=== PATIENT | female | born 1955 | race Caucasian/White ===

== ENCOUNTER → 2017-03-03 | Outpatient (CLI) | payer OTHER ==
[~2017-03-03] MED LIST: ESCI1TAB10 PO; HYDR12.55 PO; LISI-725 PO; METO-217 PO; MIRAPEX 0.5 MG PO
[2017-03-03 14:40] LABS: HEMATOCRIT 45.7 % (37-47); HEMOGLOBIN 15.3 g/dL (12.0-16.0); MEAN CELL VOLUME 88.4 fL (80-100); MEAN CORPUSCULAR HEMOGLOBIN 29.6 pg (25-34); MEAN CORPUSCULAR HGB CONC 33.5 g/dl (32-36); MEAN PLATELET VOLUME 11.3 fL (7.4-10.4); PLATELET COUNT 320 K/uL (130-400); RED CELL DISTRIBUTION WIDTH CV 14.1 % (11.5-14.5); WHITE BLOOD COUNT 9.99 K/uL (4.8-10.8)
== END | disposition home or self-care (01) ==
LOC: C.LAB1850 12:51
PROVIDERS: ATTEND Physician Assistant
DX: G25.81 Restless legs syndrome (principal)

== ENCOUNTER 2017-06-24 20:48 | Emergency (ER) | payer OTHER ==
[~2017-06-24] VITALS: Ht 170.2 cm; Wt 104.2 kg
[2017-06-24 21:17] VITALS: TEMP 36.9; Ht 170.2 cm; Wt 104.2 kg
[2017-06-24 21:58] LABS: BASO % 0.2 %; BASO ABS # 0.02 K/uL (0-0.2); EOS % 2.7 %; EOS ABS # 0.29 K/uL (0-0.5); HEMATOCRIT 40.7 % (37-47); HEMOGLOBIN 13.7 g/dL (12.0-16.0); IG# 0.02 K/uL (0.00-0.02); LYMPH % 24.7 %; LYMPH ABS # 2.66 K/uL (1.2-3.4); MEAN CELL VOLUME 85.5 fL (80-100); MEAN CORPUSCULAR HEMOGLOBIN 28.8 pg (25-34); MEAN CORPUSCULAR HGB CONC 33.7 g/dl (32-36); MEAN PLATELET VOLUME 10.3 fL (7.4-10.4); MONO % 6.9 %; MONO ABS # 0.74 K/uL (0.11-0.59); NEUT % 65.3 %; NEUT ABS # 7.05 K/uL (1.4-6.5); PLATELET COUNT 289 K/uL (130-400); RED CELL DISTRIBUTION WIDTH CV 14.6 % (11.5-14.5); RED CELL DISTRIBUTION WIDTH SD 45.7 fL (36.4-46.3); WHITE BLOOD COUNT 10.78 K/uL (4.8-10.8)
--- NOTE | 2017-06-24 22:13 | DIAGNOSTIC IMAGING REPORT ---
R VENOUS DOPP LOWER EXT UNILAT CLINICAL HISTORY: 61 years-old Female presenting with right leg swelling. TECHNIQUE: Real-time grayscale and color and spectral Doppler ultrasound imaging of the veins of the right lower extremity was performed. Compression and augmentation were also utilized. COMPARISON: None. FINDINGS: Right: Common femoral vein: Patent. Greater saphenous vein: Patent. Deep femoral vein: Patent. Femoral vein: Patent. Popliteal vein: Patent. Calf veins: Limited visualization. Other: Lobular anechoic lesion in the right popliteal fossa. This with a popliteal cyst. IMPRESSION: No evidence of deep venous thrombosis. Electronically signed by: Zaheer Vail M.D. 06/24/2017 10:11 PM Dictated Date/Time: 06/24/2017 10:10 PM
[2017-06-24 22:24] LABS: CREATININE 0.68 mg/dl (0.60-1.20)
--- NOTE | 2017-06-24 22:24 | DIAGNOSTIC IMAGING REPORT ---
R KNEE 3 VIEWS CLINICAL HISTORY: 61 years-old Female presenting with right knee swelling. TECHNIQUE: Frontal, lateral, and sunrise views of the right knee were obtained. COMPARISON: None. FINDINGS: Joint space is preserved with tricompartmental osteophytosis. Slight lateral subluxation of the patella. No acute fracture or malalignment. Chondrocalcinosis noted. IMPRESSION: 1. Tricompartmental degenerative change. 2. Possible joint effusion. 3. No acute osseous injury. Electronically signed by: Zaheer Vail M.D. 06/24/2017 10:22 PM Dictated Date/Time: 06/24/2017 10:20 PM
[2017-06-24 22:47] VITALS: BP 138/62; PULSE 64; O2SAT 98
--- NOTE | 2017-06-25 05:23 | EMERGENCY ROOM VISIT NOTE ---
History First contact with patient: 21:23 Chief Complaint: LEG PAIN,LEG INJURY Stated Complaint: PAINFUL EDAMATOUS RIGHT LEG History of Present Illness The patient is a 61 year old female who presents to the Emergency Room with complaints of right knee pain and swelling for the past few days. Patient was at urgent care and sent to the ER for further evaluation and treatment. Patient does smoke. No recent travel. No history of blood clots. Patient denies chest pain, dyspnea, trauma to the knee, tick bites, fever, chills, redness to the leg. Patient states occasionally her joints do swell. Review of Systems An 10 system review of systems was completed with positives and pertinent negatives listed in the HPI. Past Medical/Surgical History SVT, hypertension Social History Smoking Status: Current Every Day Smoker Smokeless Tobacco Use: No Alcohol Use: none Drug Use: none Occupation Status: employed Current/Historical Medications Scheduled Escitalopram Oxalate (Lexapro), 20 MG PO DAILY Hydrochlorothiazide (Hydrochlorothiazide), 1 TAB PO DAILY Lisinopril (Zestril), 20 MG PO DAILY Metoprolol Succinate (Toprol Xl), 100 MG PO DAILY [mirapex .5mg], 1 TABLET PO TID PRN Physical Exam Vital Signs Date Time Temp Pulse Resp B/P (MAP) Pulse Ox O2 Delivery O2 Flow Rate FiO2 06/24/17 22:47 64 14 138/62 98 Room Air 06/24/17 21:17 36.9 87 18 182/110 95 Room Air Physical Exam VITALS: Vitals are noted on the nurse's note and reviewed by myself. Vital signs stable. GENERAL: Pleasant female, in no acute distress, nondiaphoretic, well-developed well-nourished. SKIN: Capillary reflex less than 2 seconds. HEENT: Normocephalic. PERRLA. EOMI. Nares patent. Mucous membranes moist. Neck is supple without nuchal rigidity. HEART: Regular rate and rhythm LUNGS: Clear to auscultation bilaterally without wheezes, rales or rhonchi. No retractions or accessory muscle use. ABDOMEN: Positive bowel sounds x 4. Normal tympanic percussion. Soft, nontender, without masses or organomegaly. Snyder sign negative. No guarding or rebound tenderness. MUSCULOSKELETAL: No gross musculoskeletal defects. No pedal edema. No calf tenderness. The right knee is swollen. There is joint effusion present. There are no previous scars to the knee. There is no joint line tenderness. The patella not subluxate. Range of motion is not limited by tenderness. Strength of the quads and hamstrings is 5/5. Byron's is neg. Ruthie's and Anterior Drawer tests are neg. NEURO: Patient was alert and oriented to person place and time. Normal sensation to light and sharp touch. No focal neurological deficits. Medical Decision & Procedures Laboratory Results 06/24/17 21:44 Red Blood Count 4.76, Mean Corpuscular Volume 85.5, Mean Corpuscular Hemoglobin 28.8, Mean Corpuscular Hemoglobin Concent 33.7, Mean Platelet Volume 10.3, Neutrophils (%) (Auto) 65.3, Lymphocytes (%) (Auto) 24.7, Monocytes (%) (Auto) 6.9, Eosinophils (%) (Auto) 2.7, Basophils (%) (Auto) 0.2, Neutrophils # (Auto) 7.05, Lymphocytes # (Auto) 2.66, Monocytes # (Auto) 0.74, Eosinophils # (Auto) 0.29, Basophils # (Auto) 0.02 06/24/17 21:44 Test 06/24/17 21:44 White Blood Count 10.78 K/uL (4.8-10.8) Red Blood Count 4.76 M/uL (4.2-5.4) Hemoglobin 13.7 g/dL (12.0-16.0) Hematocrit 40.7 % (37-47) Mean Corpuscular Volume 85.5 fL (80-100) Mean Corpuscular Hemoglobin 28.8 pg (25-34) Mean Corpuscular Hemoglobin Concent 33.7 g/dl (32-36) Platelet Count 289 K/uL (130-400) Mean Platelet Volume 10.3 fL (7.4-10.4) Neutrophils (%) (Auto) 65.3 % Lymphocytes (%) (Auto) 24.7 % Monocytes (%) (Auto) 6.9 % Eosinophils (%) (Auto) 2.7 % Basophils (%) (Auto) 0.2 % Neutrophils # (Auto) 7.05 K/uL (1.4-6.5) Lymphocytes # (Auto) 2.66 K/uL (1.2-3.4) Monocytes # (Auto) 0.74 K/uL (0.11-0.59) Eosinophils # (Auto) 0.29 K/uL (0-0.5) Basophils # (Auto) 0.02 K/uL (0-0.2) RDW Standard Deviation 45.7 fL (36.4-46.3) RDW Coefficient of Variation 14.6 % (11.5-14.5) Immature Granulocyte % (Auto) 0.2 % Immature Granulocyte # (Auto) 0.02 K/uL (0.00-0.02) Erythrocyte Sedimentation Rate 13 mm/hr (0-21) Anion Gap 4.0 mmol/L (3-11) Est Creatinine Clear Calc Drug Dose 105.1 ml/min Estimated GFR () 107.9 Estimated GFR (Non- 93.1 BUN/Creatinine Ratio 41.6 (10-20) Calcium Level 9.0 mg/dl (8.5-10.1) C-Reactive Protein 0.69 mg/dl (0-0.29) Lyme Disease IgG Antibody NEG (NEG) Lyme Disease IgM Antibody NEG (NEG) ED Course Prior records reviewed and summarized above. Triage Nursing notes reviewed. The patient's history was concerning for swelling and pain in the leg. Differential diagnosis: Etiologies such as DVT, musculoskeletal, infection, joint effusion, trauma, lymphedema, idiopathic, CHF, as well as others were entertained.. Physical examination: The physical examination revealed no signs of infection. Neurovascularly intact. ER treatment provided: mikhail wrap and neurovascular status was rechecked after placement and is intact, pt has crutches On reassessment the patient felt better. Diagnostics interpreted by me: The labs revealed negative Lyme's. No worrisome leukocytosis Imaging studies: R KNEE 3 VIEWS CLINICAL HISTORY: 61 years-old Female presenting with right knee swelling. TECHNIQUE: Frontal, lateral, and sunrise views of the right knee were obtained. COMPARISON: None. FINDINGS: Joint space is preserved with tricompartmental osteophytosis. Slight lateral subluxation of the patella. No acute fracture or malalignment. Chondrocalcinosis noted. IMPRESSION: 1. Tricompartmental degenerative change. 2. Possible joint effusion. 3. No acute osseous injury. Electronically signed by: Zaheer Vail M.D. R VENOUS DOPP LOWER EXT UNILAT CLINICAL HISTORY: 61 years-old Female presenting with right leg swelling. TECHNIQUE: Real-time grayscale and color and spectral Doppler ultrasound imaging of the veins of the right lower extremity was performed. Compression and augmentation were also utilized. COMPARISON: None. FINDINGS: Right: Common femoral vein: Patent. Greater saphenous vein: Patent. Deep femoral vein: Patent. Femoral vein: Patent. Popliteal vein: Patent. Calf veins: Limited visualization. Other: Lobular anechoic lesion in the right popliteal fossa. This with a popliteal cyst. IMPRESSION: No evidence of deep venous thrombosis. Electronically signed by: Zaheer Vail M.D. This appears to be consistent with right knee effusion. Patient was neurovascularly and neurologically intact. She had no signs of a septic joint. No DVT. No fracture. Neg Lymes test. Patient was advised to wear the knee Mikhail wrap for compression and use her crutches. She is advised to follow-up orthopedics in a few days or here in the ER sooner for severe pain, numbness, tingling, worsening signs or symptoms or as needed. By the evaluation outlined above emergent etiologies such as DVT, septic joint, trauma, infection, CHF, as well as others were deemed relatively unlikely. The pt informed about the findings as listed above. All questions were answered and pleased with the treatment. Return instructions were outlined and the patient was discharged in stable condition. Referral: The patient was referred back to their primary care physician for follow-up in 2 to 3 days for a recheck of the current condition. The chart was completed utilizing [employer] Speech voice recognition software. Grammatical errors, random word insertions, pronoun errors, and incomplete sentences are an occassional consequence of this system due to software limitations, ambient noise, and hardware issues. Any formal questions or concerns about the content, text, or information contained within the body of this dictation should be directly addressed to the physician night assistant for clarification. Medical Decision as above Medication Reconcilliation Current Medication List: was personally reviewed by me Blood Pressure Screening Patient's blood pressure: Normal blood pressure Impression Primary Impression: Knee effusion, right Departure Information Dispostion Home / Self-Care Condition GOOD Referrals Jordy Garces, D.O. Forms HOME CARE DOCUMENTATION FORM, IMPORTANT VISIT INFORMATION Patient Instructions [facility], ED Effusion Knee Additional Instructions Ibuprofen(Motrin, Advil) may be used for fever or pain. Use 600mg every six hours as needed. Take with food. Avoid using more than 2400mg in a 24 hour period. Do not use 2400mg per day for more than three consecutive days without physician direction. Prolonged inappropriate use can lead to stomach upset or ulcers. This medication can be taken if you need to drive, work, or perform activities which may be dangerous when taking narcotic pain medication. (AND/OR) Acetaminophen(Tylenol) may be used for fever or pain. Use 1000mg every six hours as needed. Avoid using more than 3000mg in a 24 hour period. This medication can be taken if you need to drive, work, or perform activities which may be dangerous when taking narcotic pain medication. Ice compresses for 20 minutes at a time four times daily for 2-3 days. Use the crutches as instructed. Rest and elevate your injury. Wear knee Mikhail wrap until pain/swelling subsides. Do not have it so tight that you cannot feel your foot. Continue current medications. Return to the ER immediately for any numbness, tingling, severe pain, extreme swelling in the extremity or as needed. Call Orthopedics tomorrow to arrange follow up.
== END 2017-06-24 23:00 | disposition home or self-care (01) ==
LOC: C.EDB 20:50 → C.EDD 23:00
DX: M25.461 Effusion, right knee (principal); I47.1 Supraventricular tachycardia; I10 Essential (primary) hypertension; F17.200 Nicotine dependence, unspecified, uncomplicated

== ENCOUNTER 2017-11-10 21:47 | Emergency (ER) | payer SELFPAY ==
[2017-11-10 21:55] VITALS: TEMP 37.3; Ht 170.2 cm
[2017-11-10 22:46] LABS: BASO % 0.4 %; BASO ABS # 0.05 K/uL (0-0.2); EOS % 1.9 %; EOS ABS # 0.26 K/uL (0-0.5); HEMATOCRIT 39.7 % (37-47); HEMOGLOBIN 13.2 g/dL (12.0-16.0); IG# 0.05 K/uL (0.00-0.02); LYMPH % 14.5 %; MEAN CELL VOLUME 84.3 fL (80-100); MEAN CORPUSCULAR HGB CONC 33.2 g/dl (32-36); MEAN PLATELET VOLUME 10.4 fL (7.4-10.4); MONO % 8.9 %; MONO ABS # 1.23 K/uL (0.11-0.59); NEUT % 73.9 %; NEUT ABS # 10.25 K/uL (1.4-6.5); PLATELET COUNT 359 K/uL (130-400); RED CELL DISTRIBUTION WIDTH CV 14.7 % (11.5-14.5); WHITE BLOOD COUNT 13.84 K/uL (4.8-10.8)
[2017-11-10] MEDS ORDERED: CEFTRIAXONE SOD INJ 1 GM ADDVIAL IV STA (22:58)
[2017-11-10] MEDS ORDERED: POTASSIUM CHLORIDE 10 MEQ TABCR PO STA (22:58)
[2017-11-10 23:05] LABS: ALKALINE PHOSPHATASE 213 U/L (45-117); ALT/SGPT 114 U/L (12-78); AST/SGOT 87 U/L (15-37); BLOOD UREA NITROGEN 28 mg/dl (7-18); CALCIUM 9.1 mg/dl (8.5-10.1); CARBON DIOXIDE 28 mmol/L (21-32); GLUCOSE 169 mg/dl (70-99); SODIUM 140 mmol/L (136-145); TOTAL PROTEIN 6.9 gm/dl (6.4-8.2)
[2017-11-10] MEDS ORDERED: POTA10CA28 PO (23:52)
[2017-11-10] MEDS ORDERED: CEPH500C PO (23:52)
--- NOTE | 2017-11-10 23:54 | EMERGENCY ROOM VISIT NOTE ---
History Report prepared by Ming: Stanley Melendez Under the Supervision of: Becka AlvarengaO. First contact with patient: 22:53 Chief Complaint: ABNORMAL LABS Stated Complaint: ILLNESS, ABNORMAL LAB History of Present Illness The patient is a 62 year old female who presents to the Emergency Room with complaints of a potassium level of 2.9 from blood work done 2 days ago. The patient reports that she also has pain and swelling in her legs and is unable to walk, beginning 2 days ago. She states that she had diarrhea for 7 days starting October 27, reporting a low potassium level at that time. She denies any urinary symptoms. Source of History: patient Onset: labs from 2 days ago Position: other (global) Symptom Intensity: 2.9 potassium level Quality: other (abnormal potassium level) Associated Symptoms: No urinary symptoms Note: swelling and pain in legs, difficulty walking Review of Systems See HPI for pertinent positives & negatives. A total of 10 systems reviewed and were otherwise negative. Past Medical & Surgical Medical Problems: (1) Bronchitis (2) Restless leg syndrome Surgical Problems: (1) History of tubal ligation Family History Cancer Diabetes mellitus Heart disease Hypertension Social History Smoking Status: Current Every Day Smoker Alcohol Use: none Drug Use: none Occupation Status: employed Current/Historical Medications Scheduled Cephalexin Monohydrate (Keflex), 500 MG PO QID Hydrochlorothiazide (Hydrochlorothiazide), 1 TAB PO DAILY Lisinopril (Zestril), 20 MG PO DAILY Metoprolol Succinate (Toprol Xl), 100 MG PO DAILY Potassium Chloride (Micro-K Ext Rel), 10 MEQ PO BID Pramipexole Dihydrochloride (Mirapex), 0.5 MG PO TID Allergies Coded Allergies: Erythromycin (Unverified Allergy, Intermediate, FEELS VERY SICK, 06/24/17) Azithromycin (Verified Adverse Reaction, Unknown, "severe epigastric pain ", 06/24/17) Physical Exam Vital Signs Date Time Temp Pulse Resp B/P (MAP) Pulse Ox O2 Delivery O2 Flow Rate FiO2 11/10/17 23:19 65 18 123/54 97 Room Air 11/10/17 21:55 37.3 67 18 140/61 96 Room Air Physical Exam CONSTITUTIONAL/VITAL SIGNS: Reviewed / noted above. GENERAL: Non-toxic in appearance. INTEGUMENTARY: Warm, dry, and [place]. HEAD: Normocephalic. EYES: without scleral icterus or trauma. ENT/OROPHARYNX: clear and moist. LYMPHADENOPATHY/NECK: Is supple without lymphadenopathy or meningismus. RESPIRATORY: Lungs clear and equal. CARDIOVASCULAR: Regular rate and rhythm. GI/ABDOMEN: Soft and nontender. No organomegaly or pulsatile mass. No rebound or guarding. Normal bowel sounds. EXTREMITIES: Well perfused. Erythema and increased warmth to the right anterior leg. BACK: No CVA tenderness. NEUROLOGICAL: Intact without focal deficits. PSYCHIATRIC: normal affect. MUSCULOSKELETAL: Normally developed with good muscle tone. Medical Decision & Procedures Laboratory Results 11/10/17 22:25 Red Blood Count 4.71, Mean Corpuscular Volume 84.3, Mean Corpuscular Hemoglobin 28.0, Mean Corpuscular Hemoglobin Concent 33.2, Mean Platelet Volume 10.4, Neutrophils (%) (Auto) 73.9, Lymphocytes (%) (Auto) 14.5, Monocytes (%) (Auto) 8.9, Eosinophils (%) (Auto) 1.9, Basophils (%) (Auto) 0.4, Neutrophils # (Auto) 10.25, Lymphocytes # (Auto) 2.00, Monocytes # (Auto) 1.23, Eosinophils # (Auto) 0.26, Basophils # (Auto) 0.05 11/10/17 22:25 Test 11/10/17 22:25 11/10/17 23:05 White Blood Count 13.84 K/uL (4.8-10.8) Red Blood Count 4.71 M/uL (4.2-5.4) Hemoglobin 13.2 g/dL (12.0-16.0) Hematocrit 39.7 % (37-47) Mean Corpuscular Volume 84.3 fL (80-100) Mean Corpuscular Hemoglobin 28.0 pg (25-34) Mean Corpuscular Hemoglobin Concent 33.2 g/dl (32-36) Platelet Count 359 K/uL (130-400) Mean Platelet Volume 10.4 fL (7.4-10.4) Neutrophils (%) (Auto) 73.9 % Lymphocytes (%) (Auto) 14.5 % Monocytes (%) (Auto) 8.9 % Eosinophils (%) (Auto) 1.9 % Basophils (%) (Auto) 0.4 % Neutrophils # (Auto) 10.25 K/uL (1.4-6.5) Lymphocytes # (Auto) 2.00 K/uL (1.2-3.4) Monocytes # (Auto) 1.23 K/uL (0.11-0.59) Eosinophils # (Auto) 0.26 K/uL (0-0.5) Basophils # (Auto) 0.05 K/uL (0-0.2) RDW Standard Deviation 46.0 fL (36.4-46.3) RDW Coefficient of Variation 14.7 % (11.5-14.5) Immature Granulocyte % (Auto) 0.4 % Immature Granulocyte # (Auto) 0.05 K/uL (0.00-0.02) Anion Gap 8.0 mmol/L (3-11) Estimated GFR () 90.3 Estimated GFR (Non- 77.9 BUN/Creatinine Ratio 35.3 (10-20) Calcium Level 9.1 mg/dl (8.5-10.1) Total Bilirubin 0.6 mg/dl (0.2-1) Aspartate Amino Transf (AST/SGOT) 87 U/L (15-37) Alanine Aminotransferase (ALT/SGPT) 114 U/L (12-78) Alkaline Phosphatase 213 U/L (45-117) Total Protein 6.9 gm/dl (6.4-8.2) Albumin 3.0 gm/dl (3.4-5.0) Globulin 3.9 gm/dl (2.5-4.0) Albumin/Globulin Ratio 0.8 (0.9-2) Urine Color DK YELLOW Urine Appearance CLEAR (CLEAR) Urine pH 5.0 (4.5-7.5) Urine Specific [place] 1.028 (1.000-1.030) Urine Protein 1+ (NEG) Urine Glucose (UA) NEG (NEG) Urine Ketones TRACE (NEG) Urine Occult Blood NEG (NEG) Urine Nitrite POS (NEG) Urine Bilirubin NEG (NEG) Urine Urobilinogen NEG (NEG) Urine Leukocyte Esterase TRACE (NEG) Urine WBC (Auto) 1-5 /hpf (0-5) Urine RBC (Auto) 0-4 /hpf (0-4) Urine Hyaline Casts (Auto) 5-10 /lpf (0-5) Urine Epithelial Cells (Auto) >30 /lpf (0-5) Urine Bacteria (Auto) NEG (NEG) Urine Pathogenic Casts /lpf (0) Laboratory results as stated above per my review. Medications Administered Medications (Trade) Dose Ordered Sig/Lanny Route Start Time Stop Time Status Last Admin Dose Admin Ceftriaxone Sodium (Rocephin Inj) 1 gm NOW STAT IV 11/10/17 22:58 11/10/17 23:00 DC 11/10/17 23:14 1 GM Potassium Chloride (Klor-Con M10) 60 meq NOW STAT PO 11/10/17 22:58 11/10/17 23:00 DC 11/10/17 23:14 60 MEQ ECG Per My Interpretation Indication: weakness Rate (beats per minute): 68 Rhythm: normal sinus Findings: no ectopy, other (no ST elevation) ED Course 2254: Previous medical records were reviewed. The patient was evaluated in room B12B. A complete history and physical examination was performed. 2257: Ordered Potassium Chloride 60 meq PO, Rocephin 1 gm IV 8: On reevaluation, the patient is resting. I discussed the results and findings with the patient. She verbalized agreement of the treatment plan. She was discharged home. Medical Decision Differential includes acute coronary syndrome, myocardial infarction, CVA, TIA, anemia, infection, pneumonia, UTI, pyelonephritis, poor nutrition, dehydration, electrolyte disturbance,hypoglycemia. This is a 62-year-old female who presents to the ED with a chief complaint of low potassium. The patient reports that she had nausea, vomiting in the first week of this month. She states that those symptoms have subsided. She had some repeat blood work done 2 days ago and that revealed that her potassium was low. She came in here for evaluation of this when her doctor called her today. The patient also reports some weakness in her lower extremities. She denies any abdominal pains or recent vomiting or diarrhea. Her exam reveals some erythema to the right leg with increased warmth concerning for cellulitis. An EKG shows a normal sinus rhythm. Potassium today is 3.0. BUN is 28. Glucose is 169. AST was mildly elevated at 87 and ALT was 114. Alkaline phosphatase was 213. Urine revealed positive nitrites but otherwise appears contaminated and negative bacteria. The patient was given IV Rocephin here. She will be discharged on Keflex. She was advised of her abnormal liver function tests. These were not abnormal 2 days ago. She was also given a prescription for some potassium for the next several days. She is felt to be stable for discharge and outpatient follow-up. Medication Reconcilliation Current Medication List: was personally reviewed by me Blood Pressure Screening Patient's blood pressure: Normal blood pressure Blood pressure disposition: Did not require urgent referral Impression Primary Impression: Hypokalemia Additional Impression: Cellulitis Scribe Attestation The scribe's documentation has been prepared under my direction and personally reviewed by me in its entirety. I confirm that the note above accurately reflects all work, treatment, procedures, and medical decision making performed by me. Departure Information Dispostion Home / Self-Care Prescriptions Potassium Chloride (Micro-K Ext Rel) 10 Meq Capcr 10 MEQ PO BID for 5 Days, #10 CAP Prov: Tee Bello D.O. 11/10/17 Cephalexin Monohydrate (Keflex) 500 Mg Cap 500 MG PO QID for 10 Days, #40 CAP Prov: Tee Bello D.O. 11/10/17 Referrals No Doctor, Assigned (PCP) Forms HOME CARE DOCUMENTATION FORM, IMPORTANT VISIT INFORMATION, WORK / SCHOOL INSTRUCTIONS Patient Instructions [facility] Additional Instructions Take Keflex as prescribed for cellulitis/leg infection. Potassium as prescribed for the next 5 days. Your liver function tests were mildly elevated today. Your blood sugar was also mildly elevated today. Your potassium today was 3.0. Follow-up with your doctor for further care and evaluation in 3-5 days. Return to the emergency department for worsening or new symptoms or any concerns. You have been examined and treated today on an emergency basis only. This is not a substitute for, or an effort to provide, complete comprehensive medical care. It is impossible to recognize and treat all injuries or illnesses in a single emergency department visit. It is therefore important that you follow up closely with your doctor. Call as soon as possible for an appointment. Problem Qualifiers
[2017-11-10] MEDS ORDERED: PRAM1TAB52 PO (23:59)
[2017-11-11 00:11] VITALS: BP 142/68; PULSE 71; O2SAT 98
== END 2017-11-11 00:13 | disposition home or self-care (01) ==
LOC: C.EDB 21:48
DX: E87.6 Hypokalemia (principal); L03.115 Cellulitis of right lower limb; M79.89 Other specified soft tissue disorders; G25.81 Restless legs syndrome; Z79.899 Other long term (current) drug therapy; Z88.1 Allergy status to other antibiotic agents; F17.200 Nicotine dependence, unspecified, uncomplicated

== ENCOUNTER 2019-09-07 10:49 | Observation (INO) ==
--- NOTE | 2019-09-07 11:22 | Pre Anesthesia Assessment ---
Date of Service September 07, 2019 Pre Sedation Assessment Cardiovascular + regular rate Respiratory + respiratory effort normal Pre-Sedation Airway Assessment Smoking Status: Current every day smoker Hx Sleep Apnea: Yes Hx Difficult Intubation: No Short, Thick Neck: No Thyromental Distance: > or= 3.5 Finger Breadths Oral Cavity: + WNL Mallampati Class: III ASA: ASA3 Procedure Planning Contraindications for Sedation: none Current Medications Reviewed: Yes Notes The planned sedation has been discussed with the patient. Informed Consent was obtained. I have identified the patient, determined the appropriateness of sedation and have assessed the patient immediately prior to the procedure. All medicine(s) and interventions are by my order.
--- NOTE | 2019-09-07 11:25 | History & Physical Report ---
Date of Service September 07, 2019 Assessment & Plan (1) SVT (supraventricular tachycardia): Plan EPS and possible ablation History of Present Illness Primary Care Provider: GEM Vallecillo Patient with a long history of palpitations and recently documented SVT. Allergies Allergy/AdvReac Type Severity Reaction Status Date / Time erythromycin base Allergy Intermediate FEELS VERY Verified 09/01/19 10:03 SICK azithromycin AdvReac SEVERE Verified 09/01/19 10:03 EPIGASTRIC PAIN Home Medications Home Medications Medication Instructions Recorded Confirmed Type amitriptyline 25 mg tablet 75 mg PO DAILY #90 tab 05/12/19 09/01/19 Rx metoprolol tartrate 50 mg tablet 50 mg PO BID #60 tab 05/12/19 09/01/19 Rx oxybutynin chloride 10 mg 10 mg PO DAILY #30 tab 05/12/19 09/01/19 Rx tablet,extended release 24 hr escitalopram oxalate 10 mg PO QPM 05/19/19 09/01/19 History albuterol sulfate 90 mcg/actuation 2 puffs INHALATION Q4H PRN gm 06/01/19 09/01/19 History aerosol inhaler atorvastatin 20 mg tablet 20 mg PO QPM #90 tab 06/01/19 09/01/19 Rx pregabalin 50 mg capsule 50 mg PO DAILY 09/01/19 09/01/19 History Past Med/Surg History Medical History Anxiety disorder Benign essential hypertension Cardiac murmur DOES NOT FOLLOW W/ CARDIO - NO PREVIOUS ECHO COPD (chronic obstructive pulmonary disease) Depression Osteoarthritis Pseudogout RLS (restless legs syndrome) Sleep apnea PER RECORD - PT DENIED Tachycardia Tobacco use (Acute) Urinary incontinence (Acute) Surgical History History of appendectomy History of carpal tunnel release History of colonoscopy History of left cataract surgery History of tonsillectomy History of tooth extraction History of tubal ligation Family History Mother Pancreatic cancer Myocardial infarction Father Multiple myeloma Hypertension Brother Diabetes Drug abuse Social History Preferred Language: Danish Communication Ability: Effective Admissions Nurse Required: No Beliefs That Will Affect Care: None marital status: Single Current Living Situation: Alone and Significant Other Feels Safe at Home: Yes Safety Concerns: Feels Safe At This Time Smoking Status: Current every day smoker Tobacco Type: cigarettes ; Age Started Using Tobacco: 17 ; packs per day: 1 ; Cigarettes Per Day: 1 ppd ; Second Hand Exposure: No ; Hx Alcohol Use: Yes Alcohol type: beer, wine and hard liquor Alcohol Intake Frequency: Rarely Hx Substance Use: No Childhood Exposure to Second-Hand Smoke: No Seatbelt Use: always Sunscreen Use: No Review of Systems Review of Systems: NO recent episodes. Physical Exam Physical Exam: Alert. Oriented. Answered questions appropriately Normal respiratory effort Regular rhythm No rashes Mp edema Results & Data Results & Data ([facility]) Vital Signs (Past 12 Hours) Vital Signs Temp Pulse Resp BP Pulse Ox 09/07/19 11:12 36.7 C 72 18 171/78 H 97 Laboratory Results 08/17 labs reviewed
[2019-09-07] MEDS ORDERED: MIDAZOLAM HCL 5 MG/ML 1 ML VIAL ONE ×2 (11:27→13:42)
[2019-09-07] MEDS ORDERED: fentaNYL citrate 100 MCG/2 ML VIAL ONE ×2 (11:27→12:56)
[2019-09-07] MEDS ORDERED: LIDOCAINE HCL 1% 20 ML VIAL ONE ×2 (11:30→12:11)
[2019-09-07] MEDS ORDERED: ISOPROTERENOL HCL 0.2 MG/ML 5 ML AMP IV ONE (12:37)
--- NOTE | 2019-09-07 14:57 | Electrophysiology Report ---
Date of Service September 07, 2019 Electrophysiology Procedure Electrophysiology Procedure Report Ablation of supraventricular tachycardia, mapping of tachycardia sites using a roving catheter, complete electrophysiologic testing including pacing from the left atrium via the coronary sinus, arrhythmia induction using programmed stimulation, drug infusion for arrhythmia induction, ultrasound-guided vascular access. Staff real estate loan processor: Ralph Vidales MD Indication: The patient is a 64-year-old woman with a longstanding history of palpitations and previously documented SVT. Based on the recurrent nature of her symptoms she was advised to consider electrophysiologic testing and possible ablation. Procedure in detail. The patient was informed of the risks benefits and alternatives to the intended procedure. She understood which proceed. She was taken to the electrophysio logy suite in a fasting state. Conscious sedation was administered per protocol on the patient was monitored electrocardiographically throughout today's procedure. The right internal jugular and right femoral areas were prepped and draped in usual sterile fashion. These areas were anesthetized using subcutaneous menstruation lidocaine solution. The right internal jugular vein was accessed several times using ultrasound guidance. However a wire could not be passed to the right atrium. This site was subsequently abandoned. The right femoral vein was accessed 3 times using modified Seldinger technique. Sheaths were placed over guidewires at this site use facilitate passage of the EP catheters to the respective chambers under fluoroscopic guidance. This included right ventricular, his bundle and coronary sinus catheters. Patient's baseline conduction system was characterize. At this point attempts were made to induce an arrhythmia. This involved programmed stimulation and isoproterenol infusion. When in tachycardia was induced, the elements of the tachycardia were characterize. Subsequently a radiofrequency ablation catheter was advanced to the area of interest and tachycardia sites mapped using a roving catheter. Radiofrequency lesions were placed until the tachycardia was no longer inducible. Subsequent to ablation repeat electrophysiologic testing including program stimulation and drug infusion were employed. At the conclusion of the case the sheath and catheters were removed. Hemostasis was achieved at the access sites using manual pressure. Patient tolerated procedure well. There were no immediate complications. Findings: Baseline intracardiac intervals Cycling the nature 1070 milliseconds Cycling in the ventricle 1066 milliseconds LA interval 206 milliseconds QRS duration 86 milliseconds QT interval 378 milliseconds AH interval 121 milliseconds HV interval 52 milliseconds Av Wenckebach occurred at 440 milliseconds in the baseline sedated state Retrograde av Wenckebach occurred at 430 milliseconds Retrograde effective refractory period was 380 milliseconds. Should be noted that retrograde conduction was decremental and concentric in nature The effective refractory period of the AV node could not be characterized as program stimulation generally resulted in echo beats or development of other atrial arrhythmias. Av node effective refractory period was less than 420 milliseconds Tachycardia: Tachycardia was inducible using programmed stimulation. Multiple echo beats were seen in the baseline state. Tachycardia cycle length was 460 milliseconds VA time was 20 milliseconds Ventricular entrainment of the tachycardia resulted in a post pacing interval which was greater than 115 milliseconds different from the tachycardia cycle length During the initial conduction assessment and attempts at programmed stimulation the patient frequently developed periods of atrial fibrillation. Occasionally these lasted a few seconds and could last as long as several minutes. Ablation: The 7 Slovenian 4 millimeter radiofrequency ablation catheter was advanced to the area of the slow pathway. An SR 0 sheath was also employed for stability. Radiofrequency lesions were placed with good power and temperature and frequent accelerated junctional beats prior to repeat testing. Post ablation intervals: Cycle length in the atrium 691 milliseconds Cycling the ventricle 701 milliseconds P are interval 189 milliseconds QRS duration 80 milliseconds QT interval 340 milliseconds AH interval 93 milliseconds HV interval 52 milliseconds Av Wenckebach occurred at 490 milliseconds Retrograde AV node refractory period was less than 250 milliseconds Ventricular refractory period was 250 milliseconds Av node effective refractory period was 340 milliseconds There were single echo beats at the conclusion of the case. There were never any more than a single echo beat with program stimulation or decremental atrial pacing There was no atrial fibrillation or other atrial arrhythmias induced subsequent to ablation It should be noted that at no time during the case either prior to or subsequent to ablation was there any discontinuity in the AV conduction curve. 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, self limited Successful modification of the slow input to the AV node rendering typical slow fast AVNRT noninducible Slightly prolonged conduction intervals in the baseline sedated state No evidence of accessory pathway conduction [facility] Electrophysiology codes EP Procedure 1: Electrophysiology: 38197 EPS and Ablation SVT Procedure 2: Electrophysiology: 47619-46 Comp EPS w/LA pacing Procedure 3: Electrophysiology: 97100 Drug Stimulation Procedure 4: Electrophysiology: 30536 Catheter mapping PG Moderate Sedation Codes Moderate Sedation Codes Procedure 1: Sedation/Anesthesia: 50081 Mod Sedation by the same physician;Init15 Min Child Age 5 & Up Procedure 2: Sedation/Anesthesia: 40007 Mod Sedation by the same physician; Ea Add [id number] Minutes
[2019-09-07] MEDS ORDERED: ACETAMINOPHEN 325 MG TAB PO PRN (14:58)
[2019-09-07] MEDS ORDERED: OXYCODONE HCL IR 5 MG TAB (IMMEDIATE RELEASE) PO PRN (14:58)
--- NOTE | 2019-09-07 14:58 | Post Anesthesia Assessment ---
Date of Service September 07, 2019 Post Sedation Assessment Vital Signs Temp Pulse Resp BP Pulse Ox 09/07/19 11:12 36.7 C 72 18 171/78 H 97 Recovery Score Activity: Moves 4 extremities Respiration: Deep Breath/Cough Circulation: +/-20% PreAnes Value Consciousness: Arouseable (by name) Oxygen Saturation: > 92% On Room Air Discharge Sedation Level of Care: Fast Track Phase II Post Sedation Plan On clinical assessment, the patient appears to have tolerated the sedation without complications. Patient is recovering as anticipated. Patient will continue to be monitored by nursing and may be discharged when sedation discharge criteria are met per below protocol. Upon Completions of procedure up to 15 minutes continue every 5 minute vital signs and the P.A.R. score; then discharge to a Phase I or Fast Track to Phase II per the following guidelines: * Discharge Patient to appropriate Phase II area if PAR is 8 or greater or return to pre- procedure baseline. The post - procedure orders will be as directed. * If PAR score is less than 8 or not return to pre-procedure baseline then patient will follow Phase I monitoring till PAR is reached for Phase II. The Phase I may be done in procedure room or may call to secure a Phase I area. * If naloxone or flumazenil are used for reversal, hold in Phase I for continued monitoring from when last reversal dose was given for a minimum of 60 minutes or longer pending the nurse and/or physician discretion of patient condition before discharge to Phase II. Please call the Sedation Physician to re-evaluate and complete post-note for discharge to Phase II area. Do NOT discharge from procedure sedation or Phase 1 until post- sedation evaluation note is complete by procedure /sedation MD Sedation Discharge Instructions to be given to the patient at discharge to home.
[2019-09-07] MEDS ORDERED: ALBUTEROL 0.083% NEBU SOLN 3 ML VIAL NEB PRN (17:23)
[2019-09-07] MEDS: BuPROPion SR 100 MG TABCR PO SCH (20:43)
[2019-09-07] MEDS ORDERED: ESCITALOPRAM OXALATE 10 MG TAB PO SCH (21:00)
[2019-09-07] MEDS ORDERED: buPROPion HCl 100 MG TABLET PO SCH (21:00)
[2019-09-07] MEDS ORDERED: ATORVASTATIN 20 MG TAB PO SCH (21:00)
[2019-09-08] MEDS ORDERED: AMITRIPTYLINE HCL 25 MG TAB PO SCH (09:00)
[2019-09-08] MEDS ORDERED: OXYBUTYNIN CHLORIDE XL 5 MG TABCR PO SCH (09:00)
[2019-09-08] MEDS ORDERED: PREGABALIN 50 MG CAP PO SCH (09:00)
[2019-09-08] MEDS: BuPROPion SR 100 MG TABCR PO SCH (09:16)
--- NOTE | 2019-09-08 09:58 | Discharge Summary ---
Date of Service September 08, 2019 Admission HPI Per Admitting Provider Patient with a long history of palpitations and recently documented SVT. Principal Diagnosis q Discharge Exam No evidence of hematoma at the jugular or right femoral access sites. No bleeding. Discharge Data Allergies Allergy/AdvReac Type Severity Reaction Status Date / Time erythromycin base Allergy Intermediate FEELS VERY Verified 09/01/19 10:03 SICK azithromycin AdvReac SEVERE Verified 09/01/19 10:03 EPIGASTRIC PAIN Procedures Performed Operation Date: 09/07/19 12:00 Actual Procedures s LA Pacing (Add-On) - Main Vidales MD s Ultrasound Vascular Access - Main Vidales MD s Drug Stimulation - Main Vidales MD p EPS + Ablation for SVT Flutter - Main Vidales MD Ordered Studies 09/07/19 07:15 EP Lab Images for PACS ONCE Hospital Course (1) SVT (supraventricular tachycardia): The day of admission the patient underwent electrophysiologic testing and ablation. She was noted to have inducible AVNRT and underwent modification of the slow pathway which resulted in non inducibility at the conclusion of the test. She elected to stay overnight due to the late nature of the procedure. The following morning she was feeling well. She was ambulatory. There is no evidence of bleeding at the access sites. Telemetry did not reveal any additional episodes of SVT or arrhythmia. She was noted to have elevated blood pressures during her admission. She was administered 2 doses of captopril. Her metoprolol was reduced at the time of discharge as this was prescribed primarily for SVT. We will need to monitor her blood pressure closely in the outpatient setting. Total Time Total Time Spent Total Time Spent (In Minutes): 10 Discharge Plan Discharge Items Patient Disposition: Home - Self-Care Reason For Visit: Supraventricular Tachycardia Discharge Diagnosis: SVT Condition on Discharge: Good Activity: Per Instructions section Activity Comment: No lifting more than 10# for 5 days Lifting: No more than 10 pounds Bathing: No limitations Sexual Activity: When tolerated Driving/Machine Use: Resume 1 day after discharge Non-emergency contact: Technical Program Manager Call non-emergency contact if: you have any medication questions and your pain is unusual for you Follow-up/Referrals: Keira Santizo CRNP [Primary Care Provider] - Diet: Regular Addtl Attending Provider Instructions: reduce metoprolol to 25mg BID Pending Studies at Discharge: No Stand-Alone Forms: My [facility], Smoking Cessation Medications and DC Order Prescriptions: New metoprolol tartrate 25 mg tablet 25 mg PO BID Qty: 60 RF: 0 Continued albuterol sulfate 90 mcg/actuation HFA aerosol inhaler 2 puffs inhalation Q4H PRN (Reason: shortness of breath or wheezing) RF: 0 atorvastatin [Lipitor] 20 mg tablet 20 mg PO QPM Qty: 90 RF: 3 amitriptyline 25 mg tablet 75 mg PO DAILY Qty: 90 RF: 5 oxybutynin chloride 10 mg tablet extended release 24hr 10 mg PO DAILY Qty: 30 RF: 5 pregabalin [Lyrica] 50 mg capsule 50 mg PO DAILY RF: 0 escitalopram oxalate 10 mg tablet 10 mg PO QPM RF: 0 bupropion HCl 100 mg Tablet Sustained-Release 12 Hr 100 mg PO BID RF: 0 Discontinued metoprolol tartrate 50 mg tablet 50 mg PO BID Qty: 60 RF: 5 Discharge Orders: Discharge Order (Routine); Ordered 09/08/19 Ordered By: Main Vidales Admission Data Admit Date/Time: 09/07/19 14:03 Attending Provider: Main Vidales Admit Provider: Main Vidales Primary Care Provider: Keira Santizo Coding Level of Care Code 52616 OBS Care - Discharge Diagnoses SVT (supraventricular tachycardia) I47.1
== END 2019-09-08 11:12 | disposition home or self-care (01) ==
LOC: 2S 10:49 → EP 10:49

== ENCOUNTER 2023-12-16 09:56 | Observation (INO) ==
--- NOTE | 2023-11-18 15:25 | PAT Medication Instructions ---
Medication Instructions Date of Service November 18, 2023 Home Medications Medication Instructions Recorded CPAP Machine #1 ea 10/12/19 albuterol sulfate 90 mcg/actuation 2 puff inhalation Q6H PRN 12/31/21 aerosol inhaler shortness of breath or wheezing #18 grams nitroglycerin 0.4 mg sublingual 0.4 mg sublingual Q5M PRN chest 05/13/23 tablet pain #14 tabs pantoprazole 40 mg tablet,delayed 40 mg PO BID #180 tabs 07/08/23 release (Protonix) lisinopril 20 1 tab PO BID #200 tabs 09/20/23 mg-hydrochlorothiazide 12.5 mg tablet ferrous sulfate 325 mg (65 mg 325 mg PO Q OTHER DAY #90 tabs 10/25/23 iron) tablet gabapentin 600 mg tablet 600 mg PO TID #90 tabs 10/26/23 albuterol sulfate 90 mcg/actuation aerosol inhaler 2 puff inhalation Q6H PRN aspirin 81 mg chewable tablet 81 mg PO QAM nitroglycerin 0.4 mg sublingual tablet 0.4 mg sublingual Q5M PRN pantoprazole 40 mg tablet,delayed release (Protonix) 40 mg PO BID lisinopril 20 mg-hydrochlorothiazide 12.5 mg tablet 1 tab PO BID ferrous sulfate 325 mg (65 mg iron) tablet 325 mg PO Q OTHER DAY vibegron 75 mg tablet (Gemtesa) 75 mg PO QAM gabapentin 600 mg tablet 600 mg PO TID cholecalciferol (vitamin D3) 50 mcg (2,000 unit) capsule 50 mcg PO QAM metoprolol succinate 25 mg tablet,extended release 24 hr (Toprol XL) 25 mg PO QAM rosuvastatin 40 mg tablet (Crestor) 40 mg PO QAM Continue as directed nitroglycerin 0.4 mg sublingual tablet 0.4 mg sublingual Q5M PRN(if needed) ASK your prescriber and surgeon aspirin 81 mg chewable tablet 81 mg PO QAM DO NOT take the morning of surgery lisinopril 20 mg-hydrochlorothiazide 12.5 mg tablet 1 tab PO BID ferrous sulfate 325 mg (65 mg iron) tablet 325 mg PO Q OTHER DAY vibegron 75 mg tablet (Gemtesa) 75 mg PO QAM cholecalciferol (vitamin D3) 50 mcg (2,000 unit) capsule 50 mcg PO QAM Take morning of surgery With a small sip of water, OTHERWISE NOTHING TO EAT OR DRINK AFTER MIDNIGHT: albuterol sulfate 90 mcg/actuation aerosol inhaler 2 puff inhalation Q6H PRN(use if needed; please bring with you to hospital day of surgery if possible) pantoprazole 40 mg tablet,delayed release (Protonix) 40 mg PO BID gabapentin 600 mg tablet 600 mg PO TID metoprolol succinate 25 mg tablet,extended release 24 hr (Toprol XL) 25 mg PO QAM rosuvastatin 40 mg tablet (Crestor) 40 mg PO QAM Take evening before surgery albuterol sulfate 90 mcg/actuation aerosol inhaler 2 puff inhalation Q6H PRN(if needed) pantoprazole 40 mg tablet,delayed release (Protonix) 40 mg PO BID lisinopril 20 mg-hydrochlorothiazide 12.5 mg tablet 1 tab PO BID gabapentin 600 mg tablet 600 mg PO TID Other Notes If you have any questions please call us at [phone] or [phone] or [phone] or [phone]
--- NOTE | 2023-12-01 09:54 | Anesthesiology Consultation ---
Date of Service December 01, 2023 Assessment & Plan (1) Encounter for pre-operative examination: - Infectious disease screening: Per assessment on 12/01/23: No known recent infectious disease contacts or current infectious disease symptoms. - Cardiology visit (07/09/23): "Coronary artery disease s/p STEMI with PCI of ramus: No current symptoms suggestive of cardiac ischemia. On aspirin and metoprolol. We discussed symptoms to be aware.. Hypertension: BP is well controlled. Continue current therapy.. Dyslipidemia: Last LDL was at goal. Triglycerides at goal. Continue high-dose rosuvastatin.. PSVT: Successful ablation in August 2019. Asymptomatic.. Syncope: Unclear etiology. No recurrence.. Follow Up: [place] 1 Year" Chart Review Chart Review: Acceptable Risk for Surgery and Patient seen in Pre Admission Testing Teaching & Discussion Pre-Anesthesia Teaching/Discussion Notes: Instructed NPO after midnight before surgery,except medications with 15 cc of water. Medication instructions provided according to the PAT guidelines. History Surgery Operation Date: 12/16/23 11:45 Proposed Procedures p Robotic Assisted Laparoscopic Adrenalectomy-Right - Rafael Jackson DO Height/Weight Height: 5 ft 7 in Weight: 103.5 kg Allergies Allergy/AdvReac Type Severity Reaction Status Date / Time erythromycin base AdvReac Intermediate "Very sick" Verified 11/26/23 13:09 azithromycin AdvReac Unknown Severe Verified 11/26/23 13:09 epigastric pain Medications Home Medications Medication Instructions Recorded Confirmed Last Taken CPAP Machine #1 ea 10/12/19 10/25/23 Unknown albuterol sulfate 90 mcg/actuation 2 puff inhalation Q6H PRN 12/31/21 11/18/23 Unknown aerosol inhaler shortness of breath or wheezing #18 grams aspirin 81 mg chewable tablet 81 mg PO QAM 12/31/21 11/18/23 Unknown nitroglycerin 0.4 mg sublingual 0.4 mg sublingual Q5M PRN chest 05/13/23 11/18/23 Unknown tablet pain #14 tabs pantoprazole 40 mg tablet,delayed 40 mg PO BID #180 tabs 07/08/23 11/18/23 U nknown release (Protonix) lisinopril 20 1 tab PO BID #200 tabs 09/20/23 11/18/23 Unknown mg-hydrochlorothiazide 12.5 mg tablet ferrous sulfate 325 mg (65 mg 325 mg PO Q OTHER DAY #90 tabs 10/25/23 11/18/23 Unknown iron) tablet vibegron 75 mg tablet (Gemtesa) 75 mg PO QAM 10/25/23 11/18/23 Unknown gabapentin 600 mg tablet 600 mg PO TID #90 tabs 10/26/23 11/18/23 Unknown cholecalciferol (vitamin D3) 50 50 mcg PO QAM 11/18/23 11/18/23 Unknown mcg (2,000 unit) capsule metoprolol succinate 25 mg 25 mg PO QAM 11/18/23 11/18/23 Unknown tablet,extended release 24 hr (Toprol XL) rosuvastatin 40 mg tablet (Crestor) 40 mg PO QAM 11/18/23 11/18/23 Unknown Past Medical History Medical History Adrenal mass greater than 4 cm in diameter Abdomen CT 07/2023: "Heterogeneous right adrenal nodule with lipid components measures 31 x 42 mm, unchanged from prior exam" Anxiety Benign essential hypertension CAD (coronary artery disease) STEMI > PCI with Emmett BRAYDON of ramus (2021) Cardiac murmur Echo 12/2021: Mild MR COPD (chronic obstructive pulmonary disease) Depression Dyslipidemia GERD (gastroesophageal reflux disease) History of myocardial infarction (12/2021) STEMI > PCI with [facility] BRAYDON of ramus History of recurrent urinary tract infection Insomnia Left knee DJD Multinodular goiter (nontoxic) Osteoarthritis Prediabetes no meds Pseudogout Restless leg syndrome Right knee DJD Sleep apnea CPAP (non-compliant) Urge incontinence of urine due to female genital prolapse Exercise / Class Metabolic Activity II 4-5 Yardwork/Stairs/Walk up hill (one FS: No CP, no SOB) Past Family History Family History Mother Pancreatic cancer Myocardial infarction Diabetes Heart disease Hypertension Father Hypertension Multiple myeloma Cancer Brother Drug abuse Diabetes Sister Diabetes Other No family history of adverse response to anesthesia Denies family history of Ovarian cancer Prostate cancer Breast cancer Colorectal cancer Past Surgical History Surgical History Epidermal cyst (02/15/23) History of appendectomy History of carpal tunnel release Right History of colonoscopy History of left cataract surgery History of right cataract surgery History of tonsillectomy History of tooth extraction History of tubal ligation S/P coronary artery stent placement PCI with Emmett BRAYDON of ramus (2021) Status post ablation of ventricular arrhythmia 2019, Dr Vidales Past Anesthesia History No Hx of Anesthesia Complications and No Family Hx of Anesthesia Complications History of PONV No Hx of PONV and No Hx of Motion Sickness Social History Smoking Status: Former smoker tobacco type: cigarettes Do You Dip or Chew Tobacco: No Smoking End Date: Quit 2021 (hx 10 cigs/day) Hx Alcohol Use: Yes Alcohol type: beer alcohol intake frequency: a few times a month Hx Substance Use: No substance use type: does not use Review of Systems Patient denies chest pain, shortness of breath, dyspnea on exertion, fever, chills, cough, wheezing, palpitations. Physical Exam Vital Signs BP 142/84 P 59 TEMP 98.3 SP02 98%RA RESP 18 Physical Full cervical extension range of motion. Full TMJ range of motion. TMD 3 finger breaths Mallampati Score III Dentition: full upper/lower dentures Lungs: clear throughout to auscultation Cardiac: regular rate and rhythm, no murmurs noted Spine: normal Carotid arteries: negative bruit Extremities: no LE edema Lab Results Anesthesia Preop Results Results Anesthesia Widget: WBC 8.63 K/ul (4.8-10.8) 12/01/23 Hgb 13.6 g/dl (12.0-16.0) 12/01/23 Hct 41.1 % (37.0-47.0) 12/01/23 Plt 240 K/uL (130-400) 12/01/23 Na 141 mmol/L (136-145) 12/01/23 K 4.2 mmol/L (3.5-5.1) 12/01/23 Cl 106 mmol/L (98-107) 12/01/23 CO2 32 mmol/L (21-32) 12/01/23 BUN 23 mg/dl (6-23) 12/01/23 Creat 0.65 mg/dl (0.6-1.2) 12/01/23 Glucose Level 103 mg/dl (70-99(Fasting)) H 12/01/23 Blood Type O Positive 12/01/23 Antibody Screen NEGATIVE 12/01/23 Testing Laboratory Results Urine culture (12/01/23): pending Electrocardiogram Date: 12/01/23 SB with first degree AVB at 53bpm. "Otherwise normal ECG" Chest X-Ray Date: 12/01/23 FINDINGS: Cardiac silhouette is enlarged. Atherosclerosis of the aorta. Hiatal hernia. Mild linear scarring versus atelectasis within the lingula. No pneumothorax, pleural effusion, airspace consolidation or pulmonary edema. Bones of the chest appear grossly intact. IMPRESSION: Cardiomegaly without acute process. Hiatal hernia. Echocardiogram Date: 12/28/21 LVEF 55-59%. Moderate sized apical, inferior, posterior and lateral wall motion abnormality with hypokinesis of the segments. Mild MR. Grade 1 diastolic dysfunction. Stress Test Date: 07/21/19 No ischemic changes on stress echo at 75% MPHR; cannot exclude ischemic changes at faster heart rate. Nondiagnostic exercise ECG for ischemia as target heart rate not attained. No chest pain. Fair exercise tolerance. 7 METS. EF 60-65%. Mild LAD. No significant valvular disease. Type I DD. Moderate cLVH. Borderline RVD. Cardiac Catheterization Date: 12/29/21 Recent STEMI s/p tPA. 90% stenosis s/p successful PCI with Magazine BRAYDON. Distal small branch RPL has 100% occlusion. Other Testing Abdomen CT Date: 08/11/23 FINDINGS: Lower chest: No acute abnormality. Liver: Unremarkable. No focal lesions are seen. Gallbladder and biliary tree: No calcified gallstones. Normal caliber wall. No intra- or extrahepatic biliary ductal dilation. Pancreas: Unremarkable, no focal lesions. Spleen: Unremarkable. Adrenals: Heterogeneous right adrenal nodule with lipid components measures 31 x 42 mm, unchanged from prior exam. It measures 16 Hounsfield units on precontrast imaging, 27 calcified units on portal venous phase, and 12 Hounsfield units on delayed imaging. Kidneys and ureters: Subcentimeter hypodensities are too small to characterize. Bowel: Moderate hiatal hernia is seen. Lymph nodes Retroperitoneal: Unremarkable. Mesenteric: Unremarkable. Peritoneum: Normal. Vessels: Atherosclerotic calcifications are seen. Abdominal wall: Unremarkable. Bones: Degenerative changes in the visualized spine. IMPRESSION: Right adrenal lesion is again seen with washout characteristics compatible with adenoma.
[~2023-12-16 09:56] MED LIST changes: +ACETAMINOPHEN 1000 MG/100 ML IV IV ONE; -ESCI1TAB10 PO; -HYDR12.55 PO; -LISI-725 PO; -METO-217 PO; -MIRAPEX 0.5 MG PO
[2023-12-16] MEDS: LR 15ML/HR IV SCH (10:10)
[2023-12-16] MEDS ORDERED: ONDANSETRON INJ 2 MG/ML 2 ML VIAL IV PRN ×2 (10:47→16:20)
[2023-12-16] MEDS ORDERED: ePHEDrine sulfate 50 MG/ML AMP IV PRN ×2 (10:47→15:15)
[2023-12-16] MEDS ORDERED: HYDROmorphone INJ 1 MG/ML SYRINGE IV PRN (10:47)
[2023-12-16] MEDS ORDERED: PROMETHAZINE HCL 6.25 MG in SODIUM CHLORIDE 0.9% 50 ML IV PRN (10:47)
[2023-12-16] MEDS ORDERED: ATROPINE SULFATE 0.1 MG/ML 10ML SYR IV PRN ×2 (10:47→15:15)
--- NOTE | 2023-12-16 11:56 | History & Physical Report ---
Date of Service December 16, 2023 Assessment & Plan (1) Adrenal mass greater than 4 cm in diameter: (2) Prediabetes: (3) GERD (gastroesophageal reflux disease): (4) COPD (chronic obstructive pulmonary disease): (5) CAD (coronary artery disease): Plan Patient with Large Right adrenal nodule. Did have an increase in size over time when first evaluated but since then has not had a drastic increase in size but does measure over 4.2 cm. Discussed possible functional adenomas All questions have been answered to the best of my abilities, and the patient has expressed excellent understanding. Risks and benefits discussed at length for procedure. These include bleeding, infection, injury to surrounding tissues or organs, and risks associated with anesthesia. Patient states understanding and agrees to proceed. Will sign consent and schedule. Plan for Right Robot Asst. laparoscopic Adrenalectomy History of Present Illness Primary Care Provider: GEM Baez Patient here for procedure. No changes in medical issues. No major changes in urinary issues. Continued issues and concerns. No change in pain or discomfort. No severe fevers or chills. No chest pain or shortness of breath. Risks and benefits discussed at length for procedure. These include bleeding, infection, injury to surrounding tissues or organs, and risks associated with anesthesia. Patient and/or family states understanding and agrees to proceed. Consent and supporting information completed. Allergies Allergy/AdvReac Type Severity Reaction Status Date / Time erythromycin base AdvReac Intermediate "Very sick" Verified 12/16/23 10:27 azithromycin AdvReac Unknown Severe Verified 12/16/23 10:27 epigastric pain Home Medications Medication Instructions Recorded Confirmed Type CPAP Machine #1 ea 10/12/19 10/25/23 Rx albuterol sulfate 90 mcg/actuation 2 puff inhalation Q6H PRN 12/31/21 12/16/23 Rx aerosol inhaler shortness of breath or wheezing #18 grams aspirin 81 mg chewable tablet 81 mg PO QAM 12/31/21 12/16/23 History nitroglycerin 0.4 mg sublingual 0.4 mg sublingual Q5M PRN chest 05/13/23 12/16/23 Rx tablet pain #14 tabs pantoprazole 40 mg tablet,delayed 40 mg PO BID #180 tabs 07/08/23 12/16/23 Rx release (Protonix) lisinopril 20 1 tab PO BID #200 tabs 09/20/23 12/16/23 Rx mg-hydrochlorothiazide 12.5 mg tablet ferrous sulfate 325 mg (65 mg 325 mg PO Q OTHER DAY #90 tabs 10/25/23 12/16/23 Rx iron) tablet vibegron 75 mg tablet (Gemtesa) 75 mg PO QAM 10/25/23 12/16/23 History gabapentin 600 mg tablet 600 mg PO TID #90 tabs 10/26/23 12/16/23 Rx cholecalciferol (vitamin D3) 50 50 mcg PO QAM 11/18/23 12/16/23 History mcg (2,000 unit) capsule metoprolol succinate 25 mg 25 mg PO QAM 11/18/23 12/16/23 History tablet,extended release 24 hr (Toprol XL) rosuvastatin 40 mg tablet (Crestor) 40 mg PO QAM 11/18/23 12/16/23 History Past Med/Surg History Problem List Low vitamin D level Encounter for pre-operative examination Medical History CAD (coronary artery disease) STEMI > PCI with [place] BRAYDON of ramus (2021) Restless leg syndrome Multinodular goiter (nontoxic) Dyslipidemia COPD (chronic obstructive pulmonary disease) Benign essential hypertension Adrenal mass greater than 4 cm in diameter Abdomen CT 07/2023: "Heterogeneous right adrenal nodule with lipid components measures 31 x 42 mm, unchanged from prior exam" History of myocardial infarction (12/2021) STEMI > PCI with Emmett BRAYDON of ramus History of recurrent urinary tract infection Prediabetes no meds Depression Anxiety Sleep apnea CPAP (non-compliant) Urge incontinence of urine due to female genital prolapse GERD (gastroesophageal reflux disease) Insomnia Left knee DJD Right knee DJD Pseudogout Osteoarthritis Cardiac murmur Echo 12/2021: Mild MR Surgical History Status post ablation of ventricular arrhythmia 2019, Dr Vidales S/P coronary artery stent placement PCI with Emmett BRAYDON of ramus (2021) Epidermal cyst (02/15/23) History of right cataract surgery History of left cataract surgery History of tooth extraction History of tonsillectomy History of appendectomy History of tubal ligation History of carpal tunnel release Right History of colonoscopy Family History Mother Pancreatic cancer Myocardial infarction Diabetes Heart disease Hypertension Father Hypertension Multiple myeloma Cancer Brother Drug abuse Diabetes Sister Diabetes Other No family history of adverse response to anesthesia Denies family history of Ovarian cancer Prostate cancer Breast cancer Colorectal cancer Social History Smoking Status: Former smoker Age Started Using Tobacco: 17; packs per day: 1; Smoking End Date: Quit 2021 (hx 10 cigs/day); Second Hand Exposure: No; Do You Dip or Chew Tobacco: No; Tobacco Cessation Education Requested by Patient: No Hx Alcohol Use: Yes Alcohol type: beer Alcohol Intake Frequency: Monthly or Less Alcohol Intake Frequency Comment: "prn" Hx Substance Use: No Preferred Language: Pashto Communication Ability: Effective Visual Impairment: No Limitations Hearing Ability: Normal 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 Beliefs That Will Affect Care: None marital status: Life Partner Current Living Situation: Significant Other current occupational status: retired How many Children do You have: 1 Other Information That Helps Us Care for You: No Feels Safe at Home: Yes Safety Concerns: Feels Safe At This Time Childhood Exposure to Second-Hand Smoke: No Diet: regular caffeine: No during the past year weight has: remained stable Dental Care, Regularly: No Physical Activity Frequency: Does not Exercise Seatbelt Use: always Sunscreen Use: No Do you think of yourself as: straight/heterosexual Gender Identity: Female Assistive Devices: Denture - Upper and Denture - Lower Review of Systems All systems reviewed & are unremarkable except as noted in HPI & below Physical Exam Physical Exam: General: Alert/Arousable. No Acute illness. . HEENT: Inspection normal. Normal inspection of face. Normal inspection of neck. Psychologic: Normal affect/No change in mentation. Respiratory: No use of accessory muscles. No respiratory changes or exacerbation or changes with tachypnea or dyspnea. Cardiovascular: No tachycardia Skin: [place] and Dry. No new rashes or visible lesions. Abdomen: Normal inspection. No guarding. Results & Data Vital Signs (Past 12 Hours) Vital Signs Temp Pulse Resp BP Pulse Ox O2 Del Method 12/16/23 10:11 36.6 C 97 H 18 150/73 H 97 Room Air PG Care Time/CCT Total # of Minutes Spent Total Time Spent with Patient: Total time spent is greater than 50% in coordination of care (as documented) at patient's floor/unit and/or counseling patient: Coding Level of Care Code None Diagnoses Adrenal mass greater than 4 cm in diameter E27.8 Prediabetes R73.03 GERD (gastroesophageal reflux disease) K21.9 COPD (chronic obstructive pulmonary disease) J44.9 CAD (coronary artery disease) I25.10
[2023-12-16] MEDS ORDERED: fentaNYL citrate PF 100 MCG/2 ML VIAL ONE (12:07)
[2023-12-16] MEDS ORDERED: ONDANSETRON INJ 2 MG/ML 2 ML VIAL ONE (12:07)
[2023-12-16] MEDS ORDERED: DEXAMETHASONE SOD INJ 4 MG/ML VIAL ONE (12:07)
[2023-12-16] MEDS ORDERED: LIDOCAINE 2% 2 ML VIAL/AMP(20MG/ML) INFIL ONE (12:07)
[2023-12-16] MEDS ORDERED: MIDAZOLAM HCL 1 MG/ML 2ML VIAL ONE (12:07)
[2023-12-16] MEDS ORDERED: PROPOFOL IV EMULSION 10 MG/ML 20 ML VIAL IV ONE (12:07)
[2023-12-16] MEDS ORDERED: ROCURONIUM BROMIDE 10 MG/ML 5 ML VIAL IV ONE (12:07)
[2023-12-16] MEDS ORDERED: REMIFENTANIL HCL 1 MG VIAL IV ONE (12:15)
[2023-12-16] MEDS: ceFAZolin 2000MG 2,000 MG/15 ML SYR IV SCH ×2 (12:21→20:49)
[2023-12-16] MEDS ORDERED: ePHEDrine sulfate 50 MG/5 ML SYR ONE (13:27)
[2023-12-16] MEDS: SURGICEL ABSORB HEMOSTAT 2IN X 14IN TOP ONE (13:29)
[2023-12-16] MEDS ORDERED: SUGAMMADEX SODIUM 200 MG/2 ML VIAL IV ONE (13:56)
[2023-12-16] MEDS ORDERED: HYDROmorphone INJ 2 MG/ML SYR/VIAL ONE (14:08)
[2023-12-16] MEDS: BUPIVACAINE 0.5 % 5 MG/1 ML MPF 30ML VIAL ONE (14:09)
[2023-12-16] MEDS: TISSEEL FIBRIN SEALANT 10ML TOP ONE (14:10)
[2023-12-16] MEDS: FLOSEAL HEMOSTATIC MATRIX 10ML TOP ONE (14:10)
--- NOTE | 2023-12-16 14:38 | Operative Report ---
PG Post Operative Report Pre & Post Diagnosis Operation Date: 12/16/23 11:30 Pre-Op Diagnosis: Right Adrenal Mass Greater than 4cm in Diameter Post-Op Diagnosis: Right Adrenal Mass Greater than 4cm in Diameter I identified the patient and participated in the time-out.: Yes Procedure Operation Date: 12/16/23 11:30 Actual Procedures p Robotic Assisted Laparoscopic Adrenalectomy-Right(Right) - Rafael Jackson DO Surgeon Rafael Jackson, II, DO Mud Tank Operator GEM Roblero Estimated Blood Loss 50 Findings Consistent with Post-Op Diagnosis Large Nodular mass on the Right adrenal Specimens Right adrenal gland with adenoma Drains 18 Fr Acosta Anesthesia Type General Complications none Disposition Disposition: Recovery Room Indications Patient with adenoma of the adrenal gland. Patient underwent workup for functional status. Patient was specifically worked up for pheochromocytoma. Risks and benefits discussed at length. Description of Procedure The patient was brought to the operative suite and placed under general endotracheal intubation anesthesia in the supine position. The patient was transferred to lateral position with the right flank exposed. The patient was placed into a flex'ed position and then placed into mild reverse Trendelenburg. At this point, the patient prepped and draped in the usual sterile fashion and a timeout was completed. Preoperative weight based antibiotics had been given. YUKI's and SCD's were placed on the patient's lower extremities. A catheter was placed by nursing using sterile technique. With the time out completed the patient was flexed and the skin was marked. The robotic paramedian port site was anesthetized. A small incision was made into the skin and subcutaneous tissues. A Varess needle was selected and placed. The needle was easily moved and it was irrigated and aspirated without any issues or concerns for placement. Insufflation commenced. Once insufflated, the lateral edge of the rectus sheath was marked and anesthetized. The skin was incised and a camera port was placed. The cavity was insufflated to 15 mmHG. The laparoscopic camera was placed and the abdominal cavity inspected. No concerning features were noted. At this point, the skin was marked for port placement and 8mm working ports were placed. The skin was anesthetized down to fascia and an approx 1 cm incision was made to place the 2 x 8mm ports. A 12 mm and 5 mm dietetic assistant ports were also placed in similar fashion under direct visualization. The robot was positioned and docked. The camera was placed and all trocars were positioned under direct visualization. Elli Hernandez was integral in port placement, camera utilization, and docking procedure. She remained in sterile attire and then proceeded to assist the remainder of the case. The colon was mobilized medially to expose the retroperitoneum and the area assessed. Adhesions were freed to allow mobilization. A small amount of adhesions were noted from the colon and were freed. These were dissected with blunt technique. Cautery was used to assist dissection and control bleeding. The retroperitoneal fat was assessed. The adenoma as well as the IVC was identified. Care was taken to dissect down near the IVC. This was then followed superiorly. Dissection stayed toward the midline along the IVC and the ureter and gonadal vein were avoided. The dissection was followed to the renal pelvis. The Renal Vein was identified and exposed. Dissection was taken further superior. The adenoma began to limit dissection. This was then mobilized and care was taken to slowly dissect between the adenoma/adrenal gland and the IVC. The Adrenal vein was identified. Two hemolock clips were used to clamp the vein. No changes in heart rate or blood pressure occurred with placement of the clips. The vein was then transected. The adrenal gland with the large adenoma was then slowly dissected. Small vessels were ligated and cut as dissection progressed. Additional clips were utilized. The posterior, inferior, and superior surfaces were dissected free. No major bleeding or other issues. The specimen was placed into a catch bag and set to the side. Surgicel hemostatic agent sheets were placed under the liver and on the incised edge. Hemostatic agents Tisseel and Floseal were also placed. Hemostatic agent was also placed on the IVC and the vein stump. No major bleeding or other issues. The entire dissection space was inspected one final time. No bleeding or inj uries or areas of concern were noted. No tumor or other concerning features were noted. The kidney appeared to be without injury or area of concern. At this point, the robot was undocked and moved away from the patient. The port sites were all assessed laparoscopically. The endoscopic bag was moved into the midline 12 mm port site. The other ports were assessed and no issues observed. The 12 mm port site incision was opened further exposing fascia which was then opened in order to removed the mass within the bag. A running 1-0 PDS suture was used to close fascia. The skin at each site was closed with a stapling device. The area was cleaned and bandage placed on each incision. The patient was cleaned and bandaged. He was moved back into the supine position The patient was cleaned, aroused from anesthesia, and transferred to the pacu in stable condition having tolerated the procedure well with no complications. I was present and participated in all aspects of the procedure. GEM Hernandez was critical in the portions as mentioned above. Plan to followup in office for pathology and staple removal in 10-14 days. I attest to the content of the Intraoperative Record and any orders documented therein. Any exceptions are noted below.
[2023-12-16] MEDS: fentaNYL citrate PF 100 MCG/2 ML VIAL IV PRN (14:55)
[2023-12-16] MEDS: LABETALOL HCL IV 5 MG/ML 20ML IV STA (15:23)
[2023-12-16 15:32] LABS: Basophils # (auto) 0.04 K/uL (0.00-0.20); Basophils % (auto) 0.4 %; Eosinophils # (auto) 0.18 K/uL (0.00-0.50); Eosinophils % (auto) 1.8 %; Hematocrit (blood only) 41.9 % (37.0-47.0); Hemoglobin 13.4 g/dl (12.0-16.0); Immature Granulocytes # (auto) 0.03 K/uL (0.01-0.20); Immature Granulocytes % (auto) 0.3 %; Lymphocytes # (auto) 1.57 K/uL (1.20-3.40); Lymphocytes % (auto) 15.3 %; Mean Corpuscular Hemoglobin 28.3 pg (25.0-34.0); Mean Corpuscular Volume 88.4 fL (80.0-100.0); Monocytes % (auto) 3.9 %; Neutrophils # (auto) 8.05 K/uL (1.40-6.50); Neutrophils % (auto) 78.3 %; Platelet Count 246 K/uL (130-400); RDW Coefficient of Variation 13.6 % (11.5-14.5); Red Blood Count 4.74 M/uL (4.20-5.40); White Blood Count 10.27 K/ul (4.8-10.8)
[2023-12-16 15:50] LABS: BUN Creatinine Ratio 39.3 (10-20); Calcium 8.9 mg/dl (8.6-10.3); Est GFR (African American) 106.5 ml/min; Est GFR (Non-African American) 91.9 ml/min; Potassium 3.9 mmol/L (3.5-5.1)
[2023-12-16] MEDS ORDERED: ALBUTEROL HFA 8 GM INHALER INH PRN (16:20)
[2023-12-16] MEDS ORDERED: oxyCODONE HCL IR 5 MG TAB (IMMEDIATE RELEASE) PO PRN (16:20)
[2023-12-16] MEDS ORDERED: MoRPHine SULFATE 2 MG/ML CARP IV PRN ×2 (16:20)
[2023-12-16] MEDS ORDERED: NITROGLYCERIN SL 0.4 MG/TAB TAB SL PRN (16:20)
--- NOTE | 2023-12-16 16:31 | Anesthesiology Progress Note ---
Date of Service December 16, 2023 Anesthesia Post Procedure Vital Signs Vital Signs: Temp Pulse Pulse Pulse Resp BP BP 12/16/23 16:20 97.5 F L 67 16 161/88 H 12/16/23 16:00 72 15 160/86 H 12/16/23 15:55 63 15 185/86 H 12/16/23 15:45 97.5 F L 65 13 138/90 12/16/23 15:35 65 13 177/70 H 12/16/23 15:25 66 13 179/74 H 12/16/23 15:23 67 197/73 H 12/16/23 15:15 65 13 183/82 H 12/16/23 15:05 68 15 205/85 H 12/16/23 14:55 65 16 212/84 H 12/16/23 14:45 68 18 192/89 H 12/16/23 14:36 96.8 F L 69 13 186/83 H 12/16/23 10:11 97.9 F 97 H 18 150/73 H Pulse Ox O2 Del Method O2 Flow Rate 12/16/23 16:20 94 Nasal Cannula 2 12/16/23 16:00 93 Oxymask 2 12/16/23 15:55 96 Oxymask 2 12/16/23 15:45 97 Oxymask 6 12/16/23 15:35 94 Oxymask 6 12/16/23 15:25 95 Oxymask 8 12/16/23 15:23 12/16/23 15:15 93 Oxymask 8 12/16/23 15:05 93 Oxymask 8 12/16/23 14:55 96 Oxymask 6 12/16/23 14:45 93 Oxymask 8 12/16/23 14:36 92 Oxymask 8 12/16/23 10:11 97 Room Air Pain Intensity Abdomen: Pain Intensity: 4 Transfer of Care Handoff Completed per policy Notes Mental Status: alert / awake / arousable and participated in evaluation Patient Amnestic to Procedure: Yes Nausea / Vomiting: adequately controlled Pain: adequately controlled Airway Patency, RR, SpO2: stable & adequate BP & HR: stable & adequate Hydration State: stable & adequate Anesthetic Complications: no major complications apparent and Pt Satisfied with anesthetic care
[2023-12-16] MEDS: LACTATED RINGER'S 1,000 ML IV SCH (16:44)
[2023-12-16] MEDS: FERROUS SULFATE 325 MG TAB PO SCH (17:03)
[2023-12-16] MEDS: ACETAMINOPHEN 325 MG TAB PO PRN (19:47)
[2023-12-16] MEDS: LISINOPRIL/HCTZ 20/12.5MG 1 TAB TAB PO SCH (21:44)
[2023-12-16] MEDS: GABAPENTIN 600 MG TAB PO SCH (21:44)
[2023-12-16] MEDS: DOCUSATE SODIUM 100 MG CAP PO SCH (21:44)
[2023-12-16] MEDS: HEPARIN SOD 5,000 UNIT/0.5 ML VIAL SQ SCH (21:45)
[2023-12-16] MEDS: oxyCODONE HCL IR 5 MG TAB (IMMEDIATE RELEASE) PO PRN (21:45)
[2023-12-16] MEDS: PANTOprazole 40 MG TAB PO SCH (21:46)
[2023-12-17 06:41] LABS: Basophils # (auto) 0.03 K/uL (0.00-0.20); Basophils % (auto) 0.2 %; Eosinophils # (auto) 0.01 K/uL (0.00-0.50); Eosinophils % (auto) 0.1 %; Hematocrit (blood only) 37.6 % (37.0-47.0); Hemoglobin 12.3 g/dl (12.0-16.0); Immature Granulocytes # (auto) 0.06 K/uL (0.01-0.20); Immature Granulocytes % (auto) 0.5 %; Lymphocytes # (auto) 1.51 K/uL (1.20-3.40); Lymphocytes % (auto) 11.9 %; Mean Corpuscular Hemoglobin 28.4 pg (25.0-34.0); Mean Corpuscular Hgb Conc 32.7 g/dL (32.0-36.0); Mean Corpuscular Volume 86.8 fL (80.0-100.0); Mean Platelet Volume 11.6 fL (9.4-12.4); Monocytes # (auto) 1.03 K/uL (0.11-0.59); Monocytes % (auto) 8.1 %; Neutrophils # (auto) 10.08 K/uL (1.40-6.50); Neutrophils % (auto) 79.2 %; Platelet Count 243 K/uL (130-400); RDW Coefficient of Variation 13.6 % (11.5-14.5); RDW Standard Deviation 43.5 fL (36.4-46.3); Red Blood Count 4.33 M/uL (4.20-5.40); White Blood Count 12.72 K/ul (4.8-10.8)
[2023-12-17 06:51] LABS: BUN Creatinine Ratio 32.8 (10-20); Calcium 9.1 mg/dl (8.6-10.3); Est GFR (African American) 104.8 ml/min; Est GFR (Non-African American) 90.4 ml/min; Potassium 4.4 mmol/L (3.5-5.1)
[2023-12-17] MEDS: ROSUVASTATIN CALCIUM 20 MG TAB PO SCH (07:50)
[2023-12-17] MEDS: METOPROLOL SUCC 25MG EXT REL TAB PO SCH (07:50)
--- NOTE | 2023-12-17 08:29 | Urology Progress Note ---
Date of Service December 17, 2023 Assessment & Plan (1) Adrenal mass greater than 4 cm in diameter: Plan POD #1 s/p Robotic Assisted Laparoscopic Right Adrenalectomy with Dr. Jackson. Hospital medicine consulted for medical management/comorbidities, appreciate assistance. Patient feeling well, progressing as expected. Afebrile with stable vitals. Labs reviewed -WBC 12.72, hemoglobin 12.3, creatinine 0.64. Acosta catheter removed this morning for void trial -patient has been able to void following catheter removal. Tolerating diet. Reports minimal pain. Plan: Advance diet as tolerated. Discontinue IV fluids. Encourage ambulation. Continue supportive care and pain management as needed. Anticipate discharge home later today pending patient progression. Update: Patient reassessed. Remains afebrile and hemodynamically stable. Voiding spontaneously following catheter removal. Pain is well-controlled. Discussed with hospital team, stable for discharge from their perspective. Patient is stable for discharge home today. Discharge instructions were reviewed, all questions were answered. Postoperative follow-up appointment in place. Plan reviewed with Dr. Jackson. Admission and Anticipated Discharge Date Admission Date: December 16, 2023 Subjective Patient seen at bedside this morning Awake, resting in bed on arrival No acute distress Feeling well overall Denies fever, chills, nausea, vomiting Acosta removed this morning for void trial She has been able to void since catheter removal She reports minimal pain Tolerating diet Incisions appropriate Review of Systems Constitutional: as per Subjective / HPI Gastrointestinal: as per Subjective / HPI Genitourinary: as per Subjective / HPI Physical Exam Constitutional: no acute distress Respiratory: no respiratory distress and no labored breathing Gastrointestinal (Abdomen): Percussion/Palpation: abdomen soft; abdomen nontender Incisions appropriate with latasha and gauze dressing intact. Skin: Warm and dry. Neurologic: moves all extremities and awake Psychiatric: A+Ox3, euthymic affect Results & Data Vital Signs (Past 12 Hours) Vital Signs Temp Pulse Pulse Pulse Resp BP BP 12/17/23 07:25 36.4 C L 51 L 17 148/77 H 12/17/23 03:20 36.9 C 62 18 177/83 H 182/78 H 12/17/23 00:57 165/70 H 12/16/23 23:59 36.4 C L 53 L 16 147/100 H 12/16/23 22:05 55 L 15 12/16/23 21:09 Pulse Ox O2 Del Method O2 Flow Rate 12/17/23 07:25 100 Room Air 12/17/23 03:20 98 CPAP 12/17/23 00:57 12/16/23 23:59 98 CPAP 12/16/23 22:05 96 2 12/16/23 21:09 Nasal Cannula 2 PG Care Time/CCT Total # of Minutes Spent Total Time Spent with Patient: Total time spent is greater than 50% in coordination of care (as documented) at patient's floor/unit and/or counseling patient: Coding Level of Care Code None Diagnoses Adrenal mass greater than 4 cm in diameter E27.8
--- NOTE | 2023-12-17 10:33 | Hospitalist Consultation ---
Date of Consultation December 17, 2023 Assessment & Plan (1) Adrenal mass greater than 4 cm in diameter: Patient presented to the hospital on 12/15 for an elective right adrenalectomy. Patient post-op day #1 Pain regimen per primary team Bowel regimen per primary team DVT prophylaxis per primary team CBC reviewed - WBC 12.72, hgb 12.3 BMP reviewed - stable s/p ferrari cath removal - urinating on own. Plan Chronic conditions: CAD: continue ASA, statin, BB, ACEI HTN: Metoprolol, Lisinopril HLD: Statin Prediabetes: diet controlled GERD: PPI BID COPD: inhaler prn FABIANA: compliant w/ CPAP Anxiety/depression: wellbutrin Restless legs: gabapentin, ferrous sulfate Vit D Def: Vit D2 1999 Thank you for this consult. From a medical standpoint, patient appears stable for discharge. Please call us with questions or concerns. History of Present Illness Attending Physician: Rafael Jackson, II, DO History of Present Illness This is a 68 year old female with past medical history of HTN, HLD, GERD, COPD, FABIANA, anxiety/depression, CAD who presented to the hospital on 12/15 for a robotic right adrenalectomy. Patient is compliant with her outpatient medication regimen and appears stable overall from a medical standpoint. Today, patient reported some abdominal discomfort around the incision sites. Her catheter was removed and she was able to void 300cc per patient. Patient states that she had not passed gas yet but was hopeful she would following a walk in the hallway. She denied nausea or vomiting. She denied CP or SOB. She states her partner at home will be able to assist her around the house while she recovers. She denied any additional complaints. Patient is hopeful to return home today. Allergies Allergy/AdvReac Type Severity Reaction Status Date / Time erythromycin base AdvReac Intermediate "Very sick" Verified 12/16/23 10:27 azithromycin AdvReac Unknown Severe Verified 12/16/23 10:27 epigastric pain Home Medications Medication Instructions Recorded Confirmed Type CPAP Machine #1 ea 10/12/19 10/25/23 Rx albuterol sulfate 90 mcg/actuation 2 puff inhalation Q6H PRN 12/31/21 12/16/23 Rx aerosol inhaler shortness of breath or wheezing #18 grams aspirin 81 mg chewable tablet 81 mg PO QAM 12/31/21 12/16/23 History nitroglycerin 0.4 mg sublingual 0.4 mg sublingual Q5M PRN chest 05/13/23 12/16/23 Rx tablet pain #14 tabs pantoprazole 40 mg tablet,delayed 40 mg PO BID #180 tabs 07/08/23 12/16/23 Rx release (Protonix) lisinopril 20 1 tab PO BID #200 tabs 09/20/23 12/16/23 Rx mg-hydrochlorothiazide 12.5 mg tablet ferrous sulfate 325 mg (65 mg 325 mg PO Q OTHER DAY #90 tabs 10/25/23 12/16/23 Rx iron) tablet vibegron 75 mg tablet (Gemtesa) 75 mg PO QAM 10/25/23 12/16/23 History gabapentin 600 mg tablet 600 mg PO TID #90 tabs 10/26/23 12/16/23 Rx cholecalciferol (vitamin D3) 50 50 mcg PO QAM 11/18/23 12/16/23 History mcg (2,000 unit) capsule metoprolol succinate 25 mg 25 mg PO QAM 11/18/23 12/16/23 History tablet,extended release 24 hr (Toprol XL) rosuvastatin 40 mg tablet (Crestor) 40 mg PO QAM 11/18/23 12/16/23 History Patient History Medical History CAD (coronary artery disease) STEMI > PCI with [place] BRAYDON of ramus (2021) Restless leg syndrome Multinodular goiter (nontoxic) Dyslipidemia COPD (chronic obstructive pulmonary disease) Benign essential hypertension Adrenal mass greater than 4 cm in diameter Abdomen CT 07/2023: "Heterogeneous right adrenal nodule with lipid components measures 31 x 42 mm, unchanged from prior exam" History of myocardial infarction (12/2021) STEMI > PCI with Emmett BRAYDON of ramus History of recurrent urinary tract infection Prediabetes no meds Depression Anxiety Sleep apnea CPAP (non-compliant) Urge incontinence of urine due to female genital prolapse GERD (gastroesophageal reflux disease) Insomnia Left knee DJD Right knee DJD Pseudogout Osteoarthritis Cardiac murmur Echo 12/2021: Mild MR Surgical History Status post ablation of ventricular arrhythmia 2019, Dr Flash S/P coronary artery stent placement PCI with Emmett BRAYDON of ramus (2021) Epidermal cyst (02/15/23) History of right cataract surgery History of left cataract surgery History of tooth extraction History of tonsillectomy History of appendectomy History of tubal ligation History of carpal tunnel release Right History of colonoscopy Family History Mother Pancreatic cancer Myocardial infarction Diabetes Heart disease Hypertension Father Hypertension Multiple myeloma Cancer Brother Drug abuse Diabetes Sister Diabetes Other No family history of adverse response to anesthesia Denies family history of Ovarian cancer Prostate cancer Breast cancer Colorectal cancer Social History Smoking Status: Current some day smoker Age Started Using Tobacco: 17; packs per day: 1; Second Hand Exposure: No; Do You Dip or Chew Tobacco: No; Hx Alcohol Use: Yes Alcohol type: beer Alcohol Intake Frequency: Monthly or Less Alcohol Intake Frequency Comment: "prn" Hx Substance Use: No Preferred Language: Rwandan Communication Ability: Effective Visual Impairment: No Limitations Hearing Ability: Normal Dock Coordinator Required: No Beliefs That Will Affect Care: None marital status: Life Partner Current Living Situation: Significant Other current occupational status: retired How many Children do You have: 1 Feels Safe at Home: Yes Childhood Exposure to Second-Hand Smoke: No Diet: regular caffeine: No during the past year weight has: remained stable Dental Care, Regularly: No Physical Activity Frequency: Does not Exercise Seatbelt Use: always Sunscreen Use: No Do you think of yourself as: straight/heterosexual Gender Identity: Female Assistive Devices: Denture - Upper and Denture - Lower Physical Exam 2 Constitutional: WD/WN, vitals as above Eyes: PERRL, conjunctivae normal, anicteric sclerae Respiratory: normal respiratory effort, lungs clear to auscultation Cardiovascular: RRR, no murmur, no edema Gastrointestinal (Abdomen): abdomen soft, tender to palpation Psychiatric: A+Ox3, euthymic affect Results & Data Results & Data Vital Signs (Past 12 Hours) Vital Signs Temp Pulse Pulse Resp BP BP Pulse Ox 12/17/23 07:25 36.4 C L 51 L 17 148/77 H 100 12/17/23 03:20 36.9 C 62 18 177/83 H 182/78 H 98 12/17/23 00:57 165/70 H 12/16/23 23:59 36.4 C L 53 L 16 147/100 H 98 O2 Del Method 12/17/23 07:25 Room Air 12/17/23 03:20 CPAP 12/17/23 00:57 12/16/23 23:59 CPAP Laboratory Results 12/17/23 05:40 12/17/23 05:40 PG Care Time/CCT Total # of Minutes Spent Total Time Spent with Patient: Total time spent is greater than 50% in coordination of care (as documented) at patient's floor/unit and/or counseling patient: Coding Level of Care Code 57108 IN/OBS CONSULT LVL 3,45M Diagnoses Adrenal mass greater than 4 cm in diameter E27.8
[2023-12-17 11:26] VITALS: BP 139/70; PULSE 56; RESP 18; TEMP 97.9; O2SAT 93
--- NOTE | 2023-12-17 13:00 | Discharge Summary ---
Date of Service December 17, 2023 Admission HPI Per Admitting Provider Patient here for procedure. No changes in medical issues. No major changes in urinary issues. Continued issues and concerns. No change in pain or discomfort. No severe fevers or chills. No chest pain or shortness of breath. Risks and benefits discussed at length for procedure. These include bleeding, infection, injury to surrounding tissues or organs, and risks associated with anesthesia. Patient and/or family states understanding and agrees to proceed. Consent and supporting information completed. Admission Exam Per Admitting Provider General: Alert/Arousable. No Acute illness. . HEENT: Inspection normal. Normal inspection of face. Normal inspection of neck. Psychologic: Normal affect/No change in mentation. Respiratory: No use of accessory muscles. No respiratory changes or exacerbation or changes with tachypnea or dyspnea. Cardiovascular: No tachycardia Skin: [place] and Dry. No new rashes or visible lesions. Abdomen: Normal inspection. No guarding. Principal Diagnosis Right Adrenal Mass Greater than 4cm in Diameter Discharge Exam Constitutional no acute distress Respiratory no respiratory distress and no labored breathing Gastrointestinal (Abdomen) Percussion/Palpation: abdomen soft; abdomen nontender Incisions appropriate latasha and gauze dressing intact Skin Warm and dry Neurologic moves all extremities and awake Psychiatric A+Ox3, euthymic affect Discharge Data Allergies Allergy/AdvReac Type Severity Reaction Status Date / Time erythromycin base AdvReac Intermediate "Very sick" Verified 12/16/23 10:27 azithromycin AdvReac Unknown Severe Verified 12/16/23 10:27 epigastric pain Consultations 12/16/23 16:20 Consult Hospitalist Routine Procedures Performed Operation Date: 12/16/23 11:30 Actual Procedures p Robotic Assisted Laparoscopic Adrenalectomy-Right(Right) - Rafael Jackson, Hospital Course (1) Adrenal mass greater than 4 cm in diameter: Plan POD #1 s/p Robotic Assisted Laparoscopic Right Adrenalectomy with Dr. Jackson. Hospital medicine consulted for medical management/comorbidities, appreciate assistance. Patient feeling well, progressing as expected. Afebrile with stable vitals. Labs reviewed -WBC 12.72, hemoglobin 12.3, creatinine 0.64. Acosta catheter removed this morning for void trial -patient has been able to void following catheter removal. Tolerating diet. Reports minimal pain. Plan: Advance diet as tolerated. Discontinue IV fluids. Encourage ambulation. Continue supportive care and pain management as needed. Anticipate discharge home later today pending patient progression. Update: Patient reassessed. Remains afebrile and hemodynamically stable. Voiding spontaneously following catheter removal. Pain is well-controlled. Discussed with hospital team, stable for discharge from their perspective. Patient is stable for discharge home today. Discharge instructions were reviewed, all questions were answered. Postoperative follow-up appointment in place. Plan reviewed with Dr. Jackson. Total Time Total Time Spent Total Time Spent (In Minutes): 15 Discharge Plan Discharge Items Patient Disposition: Home - Self-Care Reason For Visit: Adrenal Mass Greater than 4cm in Diameter Discharge Diagnosis: Adrenal Mass Greater than 4cm in Diameter Condition on Discharge: Good Activity: Per Instructions section Lifting: No more than 25 pounds Bathing Comment: OK to shower. No tub baths or soaks. Sexual Activity: Wait until after follow-up appointment Exercise/Sports: Wait until after follow-up appointment Driving/Machine Use: Do not drive if taking prescription pain medication. Non-emergency contact: Surgeon and Urologist Call non-emergency contact if: you have any medication questions, your symptoms worsen, your pain is not controlled, you have a fever, your wound has increased redness, your wound has increased drainage and your wound pain has increased Follow-up/Referrals: Rafael Jackson DO [Physician] - 12/29/23 9:15 am Keira Clemons CRNP [Primary Care Provider] - Diet: Regular Addtl Attending Provider Instructions: Please take all medications as prescribed and keep all follow-ups as scheduled. Please call the urology office at [phone] with any questions, concerns or need to reschedule appointments for any reason. We are happy to assist you. Recovering at home: We recommend having someone with you for the first few days after surgery to help care for you. It is okay to shower tomorrow. Please avoid swimming, bathing or using hot tub until incisions are well healed. Avoid driving until you are not requiring pain medication any further. Walk at least a few times a day. Increase your distance, as you feel able. Stairs in your home are okay. Please avoid strenuous or sexual activity until your follow-up. We recommend using stool softener (i.e. Colace) to prevent constipation and straining, especially the first two weeks post operatively. Call [facility] at [phone] if you experience: Chest pain or trouble breathing (call 911 or go to the hospital). Fever of 101F or higher Symptoms of infection at incision site, including redness or swelling, warmth, or bad-smelling drainage Pain that is not controlled with medicines If you have catheter, and you notice: o Bloody urine or drainage that is dark red or has large clots (Please remember a small amount of blood is normal) o No drainage from the catheter for more than 6 hours o The catheter comes out of your bladder Pending Studies at Discharge: Yes (pathology) Stand-Alone Forms: My [facility] Safe[employer] Interactive, Pain - Opioid Pain Management, Smoking Cessation Medications and DC Order Prescriptions: New oxycodone 5 mg tablet 5 mg PO Q8H PRN (Reason: pain) Qty: 7 0RF Continued albuterol sulfate 90 mcg/actuation HFA aerosol inhaler 2 puff inhalation Q6H PRN (Reason: shortness of breath or wheezing) Qty: 18 5RF nitroglycerin 0.4 mg tablet, sublingual 0.4 mg sublingual Q5M PRN (Reason: chest pain) Qty: 14 0RF Rx Instructions: do not exceed 3 doses per episode lisinopril-hydrochlorothiazide 20-12.5 mg tablet 1 tab PO BID Qty: 200 3RF (DME) CPAP Machine Misc See Rx Instructions .ROUTE .MEDSUPPLY Qty: 1 0RF Rx Instructions: AUTO CPAP MIN 6 MAX 18. HEATED HUMIDITY. CPAP SUPPLIES. MASK OF CHOICE (MOUTH BREATHER AND CLAUSTRO). TOR 99. CARE PLUS O2 aspirin 81 mg tablet,chewable 81 mg PO QAM pantoprazole [Protonix] 40 mg tablet,delayed release (DR/EC) 40 mg PO BID Qty: 180 1RF Gemtesa 75 mg tablet 75 mg PO QAM ferrous sulfate 325 mg (65 mg iron) tablet 325 mg PO Q OTHER DAY Qty: 90 3RF Hold Instructions: caused diarrhea gabapentin 600 mg tablet 600 mg PO TID Qty: 90 3RF metoprolol succinate [Toprol XL] 25 mg tablet extended release 24 hr 25 mg PO QAM rosuvastatin [Crestor] 40 mg tablet 40 mg PO QAM cholecalciferol (vitamin D3) 50 mcg (2,000 unit) capsule 50 mcg PO QAM Discharge Orders: Discharge Order (Routine); Ordered 12/17/23 Ordered By: Elli Dia/Other Patient Handouts: DVT Post Op Prevention Admission Data Admit Date/Time: 12/16/23 14:35 Attending Provider: Rafael Jackson Admit Provider: Rafael Jackson Primary Care Provider: Keira Clemons Other Providers: Nathan Vargas; Moy Randle; Evaristo Nolan; Jorje Benson; Cristiano Pfeiffer; Eli Jama; Trina Abel; Elisa Bob; Kimmy Abdul; Tee Radford; Luis Eduardo Aggarwal; Gabriella Gallegos; Ralph Prasad; Moy Mena; Hai Reed; Sue Oates; Nancy Bray; Nancy Arias; Jackelyn Urbina; Sue Davila; Al Dangelo; Henry Roberson; Sahra Lyons.; Jaime Correa; Zaheer Powell; Jannette Moctezuma.; Karina Freire; Valeria Hartley; Joseluis Tello; Catherine Juarez; Evaristo Magaña; Jorje Walls; Kaur Webb; Isamar Armstrong; Alejandra Brown; Leonidas Roche; Leonid Espinal Other Interventions: Discharge Summary Assessment (RN) Last Done: 12/17/23 13:03 Coding Level of Care Code 90043 IN/OBS DISCH 30 MIN/LESS Diagnoses Adrenal mass greater than 4 cm in diameter E27.8
[2023-12-17] MEDS: PNEUMOCOCCAL VACCINE (PCV20) 20-VAL CONJ-DIP CRM/PF 0.5 ML SYR IM ONE (13:16)
== END 2023-12-17 14:02 | disposition home or self-care (01) | DRG 615 ==
LOC: ASU 09:56 → INTOOBSV 14:35 → 3E 14:35